=== PATIENT | female | born 2005 | race Caucasian/White ===

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

== ENCOUNTER 2025-08-29 11:23 | Emergency (ER) | payer OTHER | END 2025-08-29 12:05 | disposition home or self-care (01) | LOC: BURERS 11:23 | DX: K11.5 Sialolithiasis (principal); F17.290 Nicotine dependence, other tobacco product, uncomplicated | CPT/HCPCS: 99283 ==